=== PATIENT | male | born 1950 | race Hispanic/Latino ===

== ENCOUNTER → 2022-04-19 | Outpatient (CLI) | payer OTHER ==
[~2022-04-19] MED LIST: IOHEXOL 350 MG/ML 100ML INFUS..BTL IV ONE
== END | disposition home or self-care (01) ==
LOC: RAH 10:00
PROVIDERS: ATTEND Internal Medicine Cardiovascular Disease
DX: I51.7 Cardiomegaly (principal); I20.9 Angina pectoris, unspecified; I70.0 Atherosclerosis of aorta
CPT/HCPCS: 75574; Q9967 ×2